=== PATIENT | male | born 1965 | race African-American/Black ===

== ENCOUNTER 2017-04-14 12:40 | Inpatient (IN) | payer OTHER ==
[2017-04-14 17:17] VITALS: BMI 24.4
--- NOTE | 2017-04-14 19:42 | HP ---
CIWA Score - CIWA Score Nausea/Vomitin-No Nausea/No Vomiting Muscle Tremors: 4-Moderate,w/Arms Extend Anxiety: 2 Agitation: 1-Slight > Activity Paroxysmal Sweats: 3 Orientation: 0-Oriented Tacttile Disturbances: 0-None Auditory Disturbances: 0-None Visual Disturbances: 3-Moderate Sensitivity Headache: 0-None Present CIWA-Ar Total Score: 13 Admission ROS BHS - HPI Chief Complaint: I need help, I missed my methadone program yesterday and started using heroin yesterday, I need to drink every day and I don't feel well. Allergies/Adverse Reactions: Allergies Allergy/AdvReac Type Severity Reaction Status Date / Time No Known Allergies Allergy Verified 04/14/17 18:00 History of Present Illness: 51 yo male with heroin and alcohol dependence is here seeking detox. Patient attends Methadone program [facility] , currently receives methadone 50mg, last medicated 04/14/17, reports he missed attendance at his program yesterday which he attributes to him starting to use heroin once again. PHMX: DM II, non -insulin dependent, hyperlipidemia, HTN, depression and anxiety. Denies hx of seizure, OD, or psychiatric admissions. Reports no significant period of sobriety. Denies suicidal / homicidal ideation or suicide attempts. Last detox at [facility] 2000. Exam Limitations: No Limitations - Ebola screening Have you traveled outside of the country in the last 21 days: No Have you had contact with anyone from an Ebola affected area: No Have you been sick,other than usual withdrawal symptoms: No Do you have a fever: No - Review of Systems Constitutional: Chills, Loss of Appetite, Changes in sleep EENT: reports: Blurred Vision, Other (missing teeth) Respiratory: reports: No Symptoms reported Cardiac: reports: No Symptoms Reported GI: reports: Poor Appetite, Poor Fluid Intake, Abdominal cramping : reports: No Symptoms Reported Musculoskeletal: reports: Back Pain Integumentary: reports: No Symptoms Reported Neuro: reports: Weakness Endocrine: reports: No Symptoms Reported Hematology: reports: No Symptoms Reported Psychiatric: reports: Orientated x3, Anxious Other Systems: Reviewed and Negative Patient History - Patient Medical History Hx Anemia: No Hx Asthma: Yes Hx Chronic Obstructive Pulmonary Disease (COPD): No Hx Cancer: No Hx Cardiac Disorders: No Hx Congestive Heart Failure: No Hx Hypertension: Yes Hx Hypercholesterolemia: No Hx Pacemaker: No HX Cerebrovascular Accident: No Hx Seizures: No Hx Dementia: No Hx Diabetes: Yes (NIDDM) Hx Gastrointestinal Disorders: Yes (acid reflux) Hx Liver Disease: No Hx Genitourinary Disorders: No Hx Sexually Transmitted Disorders: No Hx Renal Disease (ESRD): No Hx Thyroid Disease: No Hx Human Immunodeficiency Virus (HIV): No Hx Hepatitis C: No Hx Depression: Yes Hx Suicide Attempt: No Hx Bipolar Disorder: No Hx Schizophrenia: No - Patient Surgical History Past Surgical History: Yes Hx Neurologic Surgery: No Hx Cataract Extraction: No Hx Cardiac Surgery: No Hx Lung Surgery: No Hx Breast Surgery: No Hx Breast Biopsy: No Hx Abdominal Surgery: No Hx Appendectomy: No Hx Cholecystectomy: No Hx Genitourinary Surgery: No Hx Section: No Hx Orthopedic Surgery: No Other Surgical History: removal of cyst, right ankle Anesthesia Reaction: No - PPD History Previous Implant?: Yes Documented Results: Negative w/o proof PPD to be Administered?: Yes - Reproductive History Patient is a Female of Child Bearing Age (11 -55 yrs old): No - Smoking Cessation Smoking history: Never smoked Have you smoked in the past 12 months: No Hx Chewing Tobacco Use: No Initiated information on smoking cessation: No - Substance & Tx. History Hx Alcohol Use: Yes Hx Substance Use: Yes Substance Use Type: Alcohol, Heroin Hx Substance Use Treatment: Yes ([facility] 2000) - Substances Abused Heroin Route: Inhalation Frequency: 1-2 times per week Amount used: 2 bags Age of first use: 38 Date of Last Use: 04/13/17 Alcohol-beer Route: Oral Frequency: Daily Amount used: 4-6 pks. Age of first use: 28 Date of Last Use: 04/14/17 Family Disease History - Family Disease History Family Disease History: Diabetes: Mother (dec, DM and Kidney failure ), Other: Father (dec, alcoholism ), Mother Admission Physical Exam S - Vital Signs Vital Signs: Vital Signs - 24 hr 04/14/17 17:15 Temperature 98.8 F Pulse Rate 95 H Respiratory 18 Rate Blood Pressure 170/100 - Physical General Appearance: Yes: Sweating, Anxious HEENTM: Yes: EOMI, Hearing grossly Normal, Normal ENT Inspection, Normocephalic , Normal Voice, ROWENA, Pharynx Normal, Tm's normal, Other (poor denattion) Respiratory: Yes: Chest Non-Tender, Lungs Clear, Normal Breath Sounds, No Respiratory Distress, No Accessory Muscle Use Neck: Yes: No masses,lesions,Nodules, Trachea in good position Breast: Yes: Breast Exam Deferred Cardiology: Yes: Within Normal Limits, Regular Rhythm, Regular Rate Abdominal: Yes: Normal Bowel Sounds, Non Tender, Flat, Soft Genitourinary: Yes: Within Normal Limits Back: Yes: Normal Inspection Musculoskeletal: Yes: full range of Motion, Gait Steady, Pelvis Stable Extremities: Yes: Normal Capillary Refill, Normal Inspection, Normal Range of Motion, Non-Tender, Other (bilateral nail dystrophy and discoloration on dumbs) Neurological: Yes: wildlife photographer II-XII NML intact, Fully Oriented, Alert, Motor Strength 5/5, Depressed Affect Integumentary: Yes: Normal Color, Dry, Warm Lymphatic: Yes: Within Normal Limits - Diagnostic (1) Methadone maintenance therapy patient Current Visit: Yes Status: Chronic (2) Heroin dependence Current Visit: Yes Status: Chronic (3) Alcohol dependence with withdrawal, uncomplicated Current Visit: Yes Status: Acute (4) Asthma Current Visit: Yes Status: Chronic Qualifiers: Asthma severity: mild Asthma persistence: intermittent Asthma complication type: uncomplicated Qualified Code(s): J45.20 - Mild intermittent asthma, uncomplicated (5) Hypertension Current Visit: Yes Status: Chronic Qualifiers: Hypertension type: essential hypertension Qualified Code(s): I10 - Essential (primary) hypertension (6) GERD (gastroesophageal reflux disease) Current Visit: Yes Status: Chronic Qualifiers: Esophagitis presence: without esophagitis Qualified Code(s): K21.9 - Gastro -esophageal reflux disease without esophagitis (7) Onychomycosis Current Visit: Yes Status: Chronic (8) Diabetes mellitus type 2, noninsulin dependent Current Visit: Yes Status: Chronic (9) Murmur, cardiac Current Visit: Yes Status: Chronic (10) Dehydration Current Visit: Yes Status: Acute Cleared for Admission S - Detox or Rehab [facility] Level of Care: Medically Managed Detox Regimen/Protocol: Librium [facility] Breath Alcohol Content Breath Alcohol Content: 0 Urine Drug Screen - Results Drug Screen Negative: No Urine Drug Screen Results: OPI-Opiates, MTD-Methadone
[2017-04-14] MEDS ORDERED: LOPERAMIDE HCL 2 MG CAPSULE PO PRN (19:47)
[2017-04-14] MEDS ORDERED: chlordiazePOXIDE HCL 25 MG CAPSULE PO ONE (19:47)
[2017-04-14] MEDS ORDERED: MENTHOL/PHENOL 1 EACH UD MM PRN (19:47)
[2017-04-14] MEDS ORDERED: ACETAMINOPHEN 325 MG TABLET (FP) PO PRN (19:47)
[2017-04-14] MEDS ORDERED: MAG HYDROX/AL HYDROX/SIMETH 30 ML UNIT-DOSE CUP PO PRN (19:47)
[2017-04-14] MEDS ORDERED: chlordiazePOXIDE HCL 25 MG CAPSULE PO PRN (19:47)
[2017-04-14] MEDS ORDERED: P-EPHED 60MG/TRIPROLIDI 2.5MG TABLET PO PRN (19:47)
[2017-04-14] MEDS ORDERED: hydrOXYzine PAMOATE 50 MG CAPSULE (FP) PO PRN (19:47)
[2017-04-14] MEDS ORDERED: MAGNESIUM HYDROX 2400MG/30ML ORAL SUSPENSION 30 ML CUP PO PRN (19:47)
[2017-04-14] MEDS ORDERED: MAGNESIUM CITRATE 300 ML BOTTLE PO PRN (19:47)
[2017-04-14] MEDS ORDERED: guaiFENesin/D-METHORPHAN HB 10 ML UNIT-DOSE CUPS PO PRN (19:47)
[2017-04-14] MEDS ORDERED: IBUPROFEN 400 MG TABLET (FP) PO PRN (19:47)
[2017-04-14] MEDS ORDERED: ALBUTEROL SO4 18 GM HFA INHALER IH PRN (19:49)
[2017-04-14] MEDS ORDERED: cloNIDine HCL 0.1 MG TABLET PO PRN (19:54)
[2017-04-14] MEDS: amLODIPine BESYLATE 10 MG TABLET (FP) PO SCH (20:46)
[2017-04-14] MEDS: THIAMINE HCL 100 MG TABLET (FP) PO SCH (22:33)
[2017-04-14] MEDS: chlordiazePOXIDE HCL 25 MG CAPSULE PO SCH (22:33)
[2017-04-14] MEDS: ATORVASTATIN CA 20 MG TABLET (FP) PO SCH (22:33)
[2017-04-14] MEDS: TIZANIDINE HCL 2 MG TABLET PO SCH (22:35)
[2017-04-14 22:50] LABS: URINE APPEARANCE CLEAR; URINE BILIRUBIN NEGATIVE (NEGATIVE); URINE BLOOD 1+ (NEGATIVE); URINE COLOR LTYELLOW; URINE GLUCOSE (UA) 2+ (NEGATIVE); URINE KETONE NEGATIVE (NEGATIVE); URINE LEUK ESTERASE NEGATIVE (NEGATIVE); URINE NITRITE NEGATIVE (NEGATIVE); URINE PROTEIN NEGATIVE (NEGATIVE); URINE UROBILINOGEN NEGATIVE mg/dL (0.2-1.0)
[2017-04-14 23:00] LABS: EPI CELLS RARE /HPF (FEW); URINE MUCUS RARE
[2017-04-15] MEDS: chlordiazePOXIDE HCL 25 MG CAPSULE PO SCH ×4 (05:17→22:24)
[2017-04-15] MEDS ORDERED: METHADONE HCL 10 MG TABLET PO SCH (07:30)
[2017-04-15] MEDS: sitaGLIPtin PHOSPHATE 50 MG TABLET PO SCH ×2 (07:48→17:35)
[2017-04-15] MEDS ORDERED: METHADONE HCL 10 MG TABLET ONE (09:50)
[2017-04-15] MEDS ORDERED: METHADONE HCL 40 MG DISPERSABLE TABLET ONE (09:50)
[2017-04-15] MEDS: METHADONE 40 MG, METHADONE 10 MG PO SCH (09:53)
[2017-04-15] MEDS: PRENATAL VITAMINS W/ FOLIC ACID TABLET (FP) PO SCH (09:54)
[2017-04-15] MEDS: TIZANIDINE HCL 2 MG TABLET PO SCH (09:54)
[2017-04-15] MEDS: amLODIPine BESYLATE 10 MG TABLET (FP) PO SCH (09:54)
[2017-04-15 10:18] LABS: HEMATOCRIT 40.4 % (35.4-49); HEMOGLOBIN 13.1 GM/dL (11.7-16.9); MCH 32.1 pg (25.7-33.7); MCHC 32.5 g/dl (32.0-35.9); MEAN CELL VOLUME 98.7 fl (80-96); MEAN PLT VOLUME 8.6 fl (7.5-11.1); PLATELET COUNT 189 K/MM3 (134-434); RDW 12.5 % (11.9-15.9)
[2017-04-15 10:29] LABS: CHLORIDE 97 mmol/L (98-107); POTASSIUM 3.4 mmol/L (3.5-5.1); SODIUM 137 mmol/L (136-145)
[2017-04-15 10:51] LABS: ALBUMIN 3.8 g/dl (3.4-5.0); ALK PHOS 57 U/L (45-117); ANION GAP 13 (8-16); BLOOD UREA NITROGEN 8 mg/dL (7-18); CALCIUM 9.1 mg/dL (8.5-10.1); CO2 27 mmol/L (21-32); CREATININE 0.9 mg/dL (0.7-1.3); GLUCOSE,RANDOM 149 mg/dL (74-106); SGOT/AST 80 U/L (15-37); SGPT/ALT 78 U/L (12-78); TOT PROT 7.4 g/dl (6.4-8.2)
[2017-04-15] MEDS: RANITIDINE HCL 150 MG TABLET (FP) PO SCH ×2 (10:57→22:24)
--- NOTE | 2017-04-15 13:01 | CONSULT ---
[facility] Psychiatric Consult - Data Date of interview: 04/15/17 Admission source: [facility] Identifying data: Readmission to [facility] for this 51 y/o AA male seeking detox treatment on for alcohol and opioid dependence.Patient is , a father of three,domiciled,unemployed and supported on Public Assistance. Substance Abuse History: Confirmed by patient in this session.See current [facility] report for details.Smoking history: Never smoked. Have you smoked in the past 12 months: No. Hx Chewing Tobacco Use: No. Initiated information on smoking cessation: No. - Substance & Tx. History. Hx Alcohol Use: Yes. Hx Substance Use: Yes. Substance Use Type: Alcohol, Heroin. Hx Substance Use Treatment: Yes ([facility] 2000). - Substances Abused. Heroin. Route: Inhalation. Frequency : 1-2 times per week. Amount used: 2 bags. Age of first use: 38. Date of Last Use: 04/13/17. Alcohol-beer. Route: Oral. Frequency: Daily. Amount used: 4-6 pks. Age of first use: 28. Date of Last Use: 04/14/17 Medical History: Bronchial asthma,hypertension,diabetes mellitus,GERD and dyslipidemia. Psychiatric History: Patient denies history of psychiatric hospitalizations.He is currently prescribed bupropion XL 150 mg/day + trazodone 100 mg/hs + seroquel 50 mg/hs.Mr Coppola is on methadone maintenance (50 mg/day) at the [facility] program in the [place].Diagnosed with MDD and Anxiety Disorder.Patient denies history of suicide attempts. Physical/Sexual Abuse/Trauma History: Patient denies. Additional Comment: Urine Drug Screen Results: OPI-Opiates, MTD-Methadone.Noted. Mental Status Exam - Mental Status Exam Alert and Oriented to: Time, Place, Person Cognitive Function: Good Patient Appearance: Well Groomed Mood: Withdrawn, Anxious, Hopeful Affect: Mood Congruent Patient Behavior: Fatigued, Appropriate, Cooperative Speech Pattern: Clear, Appropriate Voice Loudness: Normal Thought Process: Intact, Goal Oriented Thought Disorder: Not Present Hallucinations: Denies Suicidal Ideation: Denies Homicidal Ideation: Denies Insight/Judgement: Poor Sleep: Poorly, Difficulty falling asleep Appetite: Good Muscle strength/Tone: Normal Gait/Station: Normal Psychiatric Findings - Problem List ([place] 1, 2,3) (1) Alcohol dependence with withdrawal, uncomplicated Current Visit: Yes Status: Acute (2) Opioid dependence on agonist therapy Current Visit: Yes Status: Acute (3) Substance induced mood disorder Current Visit: Yes Status: Acute (4) MDD (major depressive disorder) Current Visit: Yes Status: Acute Comment: As per self-report.Currently in OPD treatment.On wellbutrin. (5) Insomnia Current Visit: Yes Status: Acute - Initial Treatment Plan Initial Treatment Plan: Psychoeducation.Detoxification in progress.Sleep hygiene.Medications : wellbutrin XL 150 mg po daily + trazodone 50 mg po hs + seroquel 50 mg po hs.Side-effects/benefits discussed with the patient.He is made aware of risk of seizures,metabolic syndrome,abnormal involuntary movements and priapism.Mr Coppola states that his medications are well tolerated and effective.Agrees to this careplan.Observation.
--- NOTE | 2017-04-15 15:20 | PN ---
[facility] CIWA - CIWA Score Nausea/Vomitin-No Nausea/No Vomiting Muscle Tremors: 3 Anxiety: 4-Mod. Anxious/Guarded Agitation: 3 Paroxysmal Sweats: 3 Orientation: 0-Oriented Tacttile Disturbances: 2-Mild Itch/Numbness/Burn Auditory Disturbances: 0-None Visual Disturbances: 2-Mild Sensitivity Headache: 0-None Present CIWA-Ar Total Score: 17 S Progress Note (SOAP) Subjective: Sweating, Stomach Cramping, Constipation, Tremors. Objective: PT. A & O X 3, OBSERVED AMBULATING ON UNIT. NO ACUTE DISTRESS. 04/15/17 15:18 Vital Signs Temperature 97.4 F L 04/15/17 13:51 Pulse Rate 85 04/15/17 13:51 Respiratory Rate 18 04/15/17 13:51 Blood Pressure 104/71 04/15/17 13:51 O2 Sat by Pulse Oximetry (%) Laboratory Tests 04/14/17 04/14/17 04/14/17 18:26 20:46 Unknown WBC RBC Hgb Hct MCV MCH MCHC RDW Plt Count MPV Sodium Potassium Chloride Carbon Dioxide Anion Gap BUN Creatinine Creat Clearance w eGFR POC Glucometer 88 128 Random Glucose Calcium Total Bilirubin AST ALT Alkaline Phosphatase Total Protein Albumin Urine Color Ltyellow Urine Appearance Clear Urine pH 5.0 Ur Specific [place] 1.010 Urine Protein Negative Urine Glucose (UA) 2+ H Urine Ketones Negative Urine Blood 1+ H Urine Nitrite Negative Urine Bilirubin Negative Urine Urobilinogen Negative Ur Leukocyte Esterase Negative Urine WBC (Auto) <1 Urine RBC (Auto) None Ur Epithelial Cells Rare Urine Mucus Rare RPR Titer HIV 1&2 Antibody Screen HIV P24 Antigen 04/15/17 04/15/17 04/15/17 05:16 07:40 07:40 WBC 4.0 RBC 4.10 Hgb 13.1 Hct 40.4 MCV 98.7 H MCH 32.1 MCHC 32.5 RDW 12.5 Plt Count 189 MPV 8.6 Sodium Potassium Chloride Carbon Dioxide Anion Gap BUN Creatinine Creat Clearance w eGFR POC Glucometer 101 Random Glucose Calcium Total Bilirubin AST ALT Alkaline Phosphatase Total Protein Albumin Urine Color Urine Appearance Urine pH Ur Specific Bryant Urine Protein Urine Glucose (UA) Urine Ketones Urine Blood Urine Nitrite Urine Bilirubin Urine Urobilinogen Ur Leukocyte Esterase Urine WBC (Auto) Urine RBC (Auto) Ur Epithelial Cells Urine Mucus RPR Titer HIV 1&2 Antibody Screen Negative HIV P24 Antigen Negative 04/15/17 04/15/17 07:40 07:40 WBC RBC Hgb Hct MCV MCH MCHC RDW Plt Count MPV Sodium 137 Potassium 3.4 L Chloride 97 L Carbon Dioxide 27 Anion Gap 13 BUN 8 Creatinine 0.9 Creat Clearance w eGFR > 60 POC Glucometer Random Glucose 149 H Calcium 9.1 Total Bilirubin 1.0 AST 80 H ALT 78 Alkaline Phosphatase 57 Total Protein 7.4 Albumin 3.8 Urine Color Urine Appearance Urine pH Ur Specific Bryant Urine Protein Urine Glucose (UA) Urine Ketones Urine Blood Urine Nitrite Urine Bilirubin Urine Urobilinogen Ur Leukocyte Esterase Urine WBC (Auto) Urine RBC (Auto) Ur Epithelial Cells Urine Mucus RPR Titer Nonreactive HIV 1&2 Antibody Screen HIV P24 Antigen LABS NOTED. Assessment: 04/15/17 15:18 WITHDRAWAL SYMPTOMS. HYPOKALEMIA. 04/15/17 15:22 Plan: CONTINUE DETOX. INCREASE DAILY PO FLUID INTAKE. K-DUR, 40 MEQ PO X 1 NOW, 20 MEQ PO BID STARTING TOMORROW AM. INCREASE DAILY PO FLUID INTAKE.
[2017-04-15] MEDS ORDERED: POTASSIUM CHLORIDE TABS 20 MEQ TABLET.ER (FP) PO ONE (15:37)
[2017-04-15] MEDS: THIAMINE HCL 100 MG TABLET (FP) PO SCH (22:24)
[2017-04-15] MEDS: ATORVASTATIN CA 20 MG TABLET (FP) PO SCH (22:24)
[2017-04-15] MEDS: QUEtiapine FUMARATE 50 MG TABLET PO SCH (22:24)
[2017-04-15] MEDS: traZODone HCL 50 MG TABLET (FP) PO SCH (22:25)
[2017-04-16] MEDS ORDERED: METHADONE HCL 40 MG DISPERSABLE TABLET ONE (04:12)
[2017-04-16] MEDS ORDERED: METHADONE HCL 10 MG TABLET ONE (04:12)
[2017-04-16] MEDS: METHADONE 40 MG, METHADONE 10 MG PO SCH (05:53)
[2017-04-16] MEDS: chlordiazePOXIDE HCL 25 MG CAPSULE PO SCH ×3 (05:53→18:03)
[2017-04-16] MEDS: sitaGLIPtin PHOSPHATE 50 MG TABLET PO SCH ×2 (07:20→18:06)
[2017-04-16] MEDS: PRENATAL VITAMINS W/ FOLIC ACID TABLET (FP) PO SCH (10:47)
[2017-04-16] MEDS: RANITIDINE HCL 150 MG TABLET (FP) PO SCH ×2 (10:47→22:39)
[2017-04-16] MEDS: TIZANIDINE HCL 2 MG TABLET PO SCH (10:48)
[2017-04-16] MEDS: amLODIPine BESYLATE 10 MG TABLET (FP) PO SCH (10:48)
[2017-04-16] MEDS: POTASSIUM CHLORIDE TABS 20 MEQ TABLET.ER (FP) PO SCH ×2 (10:48→18:03)
[2017-04-16] MEDS ORDERED: SENNOSIDES 8.6MG TABLET (FP) PO SCH ×2 (11:45→22:00)
[2017-04-16] MEDS ORDERED: DOCUSATE SODIUM 100 MG CAPSULE (FP) PO SCH ×2 (12:15→22:00)
--- NOTE | 2017-04-16 16:01 | PN ---
[facility] CIWA - CIWA Score Nausea/Vomitin-No Nausea/No Vomiting Muscle Tremors: 3 Anxiety: 4-Mod. Anxious/Guarded Agitation: 2 Paroxysmal Sweats: 2 Orientation: 0-Oriented Tacttile Disturbances: 2-Mild Itch/Numbness/Burn Auditory Disturbances: 0-None Visual Disturbances: 2-Mild Sensitivity Headache: 0-None Present CIWA-Ar Total Score: 15 [facility] Progress Note (SOAP) Subjective: Stomach Cramping, Constipation, Anxious, Sweating. Objective: PT. A & O X 3, OBSERVED AMBULATING ON UNIT. NO ACUTE DISTRESS. 04/16/17 15:58 Vital Signs Temperature 98.5 F 04/16/17 14:05 Pulse Rate 89 04/16/17 14:05 Respiratory Rate 18 04/16/17 14:05 Blood Pressure 107/70 04/16/17 14:05 O2 Sat by Pulse Oximetry (%) Laboratory Tests 04/14/17 04/14/17 04/14/17 18:26 20:46 Unknown WBC RBC Hgb Hct MCV MCH MCHC RDW Plt Count MPV Sodium Potassium Chloride Carbon Dioxide Anion Gap BUN Creatinine Creat Clearance w eGFR POC Glucometer 88 128 Random Glucose Calcium Total Bilirubin AST ALT Alkaline Phosphatase Total Protein Albumin Urine Color Ltyellow Urine Appearance Clear Urine pH 5.0 Ur Specific [place] 1.010 Urine Protein Negative Urine Glucose (UA) 2+ H Urine Ketones Negative Urine Blood 1+ H Urine Nitrite Negative Urine Bilirubin Negative Urine Urobilinogen Negative Ur Leukocyte Esterase Negative Urine WBC (Auto) <1 Urine RBC (Auto) None Ur Epithelial Cells Rare Urine Mucus Rare RPR Titer HIV 1&2 Antibody Screen HIV P24 Antigen 04/15/17 04/15/17 04/15/17 05:16 07:40 07:40 WBC 4.0 RBC 4.10 Hgb 13.1 Hct 40.4 MCV 98.7 H MCH 32.1 MCHC 32.5 RDW 12.5 Plt Count 189 MPV 8.6 Sodium Potassium Chloride Carbon Dioxide Anion Gap BUN Creatinine Creat Clearance w eGFR POC Glucometer 101 Random Glucose Calcium Total Bilirubin AST ALT Alkaline Phosphatase Total Protein Albumin Urine Color Urine Appearance Urine pH Ur Specific [place] Urine Protein Urine Glucose (UA) Urine Ketones Urine Blood Urine Nitrite Urine Bilirubin Urine Urobilinogen Ur Leukocyte Esterase Urine WBC (Auto) Urine RBC (Auto) Ur Epithelial Cells Urine Mucus RPR Titer HIV 1&2 Antibody Screen Negative HIV P24 Antigen Negative 04/15/17 04/15/17 04/15/17 07:40 07:40 16:15 WBC RBC Hgb Hct MCV MCH MCHC RDW Plt Count MPV Sodium 137 Potassium 3.4 L Chloride 97 L Carbon Dioxide 27 Anion Gap 13 BUN 8 Creatinine 0.9 Creat Clearance w eGFR > 60 POC Glucometer 113 Random Glucose 149 H Calcium 9.1 Total Bilirubin 1.0 AST 80 H ALT 78 Alkaline Phosphatase 57 Total Protein 7.4 Albumin 3.8 Urine Color Urine Appearance Urine pH Ur Specific [place] Urine Protein Urine Glucose (UA) Urine Ketones Urine Blood Urine Nitrite Urine Bilirubin Urine Urobilinogen Ur Leukocyte Esterase Urine WBC (Auto) Urine RBC (Auto) Ur Epithelial Cells Urine Mucus RPR Titer Nonreactive HIV 1&2 Antibody Screen HIV P24 Antigen 04/16/17 05:53 WBC RBC Hgb Hct MCV MCH MCHC RDW Plt Count MPV Sodium Potassium Chloride Carbon Dioxide Anion Gap BUN Creatinine Creat Clearance w eGFR POC Glucometer 150 Random Glucose Calcium Total Bilirubin AST ALT Alkaline Phosphatase Total Protein Albumin Urine Color Urine Appearance Urine pH Ur Specific [place] Urine Protein Urine Glucose (UA) Urine Ketones Urine Blood Urine Nitrite Urine Bilirubin Urine Urobilinogen Ur Leukocyte Esterase Urine WBC (Auto) Urine RBC (Auto) Ur Epithelial Cells Urine Mucus RPR Titer HIV 1&2 Antibody Screen HIV P24 Antigen LABS NOTED. Assessment: 04/16/17 15:59 WITHDRAWAL SYMPTOMS. HYPOKALEMIA. 04/16/17 16:00 Plan: CONTINUE DETOX.
[2017-04-16] MEDS: ATORVASTATIN CA 20 MG TABLET (FP) PO SCH (22:39)
[2017-04-16] MEDS: THIAMINE HCL 100 MG TABLET (FP) PO SCH (22:39)
[2017-04-16] MEDS: chlordiazePOXIDE 5 MG CAPSULE PO SCH (22:39)
[2017-04-16] MEDS: QUEtiapine FUMARATE 50 MG TABLET PO SCH (22:40)
[2017-04-16] MEDS: traZODone HCL 50 MG TABLET (FP) PO SCH (22:40)
[2017-04-17] MEDS ORDERED: METHADONE HCL 10 MG TABLET ONE (03:38)
[2017-04-17] MEDS ORDERED: METHADONE HCL 40 MG DISPERSABLE TABLET ONE (03:39)
[2017-04-17] MEDS: chlordiazePOXIDE 5 MG CAPSULE PO SCH (05:56)
[2017-04-17] MEDS: METHADONE 40 MG, METHADONE 10 MG PO SCH (05:57)
[2017-04-17] MEDS: sitaGLIPtin PHOSPHATE 50 MG TABLET PO SCH (07:41)
[2017-04-17 09:22] VITALS: BP 111/69; PULSE 86; TEMP 96.4
--- NOTE | 2017-04-17 15:07 | DS ---
[facility] Detox Discharge Summary Admission Date: 04/14/17 Discharge Date: 04/17/17 - History Additional Comments: pt insists on leaving despite explanation/education to complete detox. Stated "I will be good, I will use the medicine my doctor gave me that will help me to stop drinking and I will go to meetings". States he does not know the name of the med. He will f/u with his PMD Dr Summers @[address]. States he has an appointment with him next month but unsure of actual date. Pt was A & O x 3, had steady gait and not in acute distress - Physical Exam Results Vital Signs: Vital Signs Temperature 96.4 F L 04/17/17 09:22 Pulse Rate 86 04/17/17 09:22 Respiratory Rate 18 04/17/17 09:22 Blood Pressure 111/69 04/17/17 09:22 O2 Sat by Pulse Oximetry (%) Pertinent Admission Physical Exam Findings: withdrawal sx - Medication Discharge Medications: Ambulatory Orders Albuterol Sulfate Inhaler - [Ventolin HFA Inhaler -] 2 inh PO Q4H PRN 04/14/17 Amlodipine Besylate [Norvasc -] 10 mg PO DAILY 04/14/17 Atorvastatin Ca [Lipitor] 20 mg PO HS 04/14/17 Bupropion HCl [Bupropion Xl] 150 mg PO DAILY 04/14/17 Disulfiram [Antabuse -] 250 mg PO DAILY 04/14/17 Naproxen [Naprosyn -] 500 mg PO DAILY PRN 04/14/17 Quetiapine Fumarate [Seroquel -] 50 mg PO HS 04/14/17 Sitagliptin Phos/Metformin HCl [Janumet Xr 50-500 mg Tablet] 1 each PO BID 04/14 Tizanidine HCl 2 mg PO DAILY 04/14/17 Trazodone HCl 50 mg PO HS 04/14/17 metFORMIN XR [Glucophage Xr -] 500 mg PO BIDAC tab.sr.24h 04/17/17 - Diagnosis (1) Alcohol dependence with withdrawal, uncomplicated Status: Acute (2) Opioid dependence on agonist therapy Status: Acute (3) Asthma Status: Chronic Qualifiers: Asthma severity: mild Asthma persistence: intermittent Asthma complication type: uncomplicated Qualified Code(s): J45.20 - Mild intermittent asthma, uncomplicated (4) Diabetes mellitus type 2, noninsulin dependent Status: Chronic (5) GERD (gastroesophageal reflux disease) Status: Chronic Qualifiers: Esophagitis presence: without esophagitis Qualified Code(s): K21.9 - Gastro -esophageal reflux disease without esophagitis (6) Hypertension Status: Chronic Qualifiers: Hypertension type: essential hypertension Qualified Code(s): I10 - Essential (primary) hypertension - AMA Did Patient Leave Against Medical Advice: Yes
[2017-04-17] MEDS ORDERED: chlordiazePOXIDE HCL 10 MG CAPSULE PO SCH (23:00)
--- NOTE | 2017-04-19 13:38 | EKG ---
Test Reason : Blood Pressure : / mmHG Vent. Rate : 077 BPM Atrial Rate : 077 BPM P-R Int : 144 ms QRS Dur : 084 ms QT Int : 360 ms P-R-T Axes : 074 062 049 degrees QTc Int : 407 ms NORMAL SINUS RHYTHM POSSIBLE LEFT ATRIAL ENLARGEMENT LEFT VENTRICULAR HYPERTROPHY ABNORMAL ECG NO PREVIOUS ECGS AVAILABLE Confirmed by MD Donny, Ted ([id number]) on 04/19/2017 1:38:12 PM Referred By: Confirmed By:Ted Hines MD
== END 2017-04-17 09:17 | disposition left against medical advice (07) | DRG 770 ==
LOC: YASAS 12:40 → Y3N 19:20
PROVIDERS: ADMIT Internal Medicine; ATTEND Internal Medicine
PROC: HZ2ZZZZ Detoxification Services for Substance Abuse Treatment (ICD-10-PCS; principal; 2017-04-14)
DX: F10.230 Alcohol dependence with withdrawal, uncomplicated (principal); F11.20 Opioid dependence, uncomplicated; F33.9 Major depressive disorder, recurrent, unspecified; F19.24 Other psychoactive substance dependence with psychoactive substance-induced mood disorder; G47.00 Insomnia, unspecified; I10 Essential (primary) hypertension; K21.9 Gastro-esophageal reflux disease without esophagitis; J45.20 Mild intermittent asthma, uncomplicated; E11.9 Type 2 diabetes mellitus without complications; Z79.84 Long term (current) use of oral hypoglycemic drugs
CPT/HCPCS: 36415; 80053; 81003; 81015; 82962; 85027; 86593; 87389; 93005; 93010; J0735

== ENCOUNTER 2019-01-30 10:47 | Inpatient (IN) | payer OTHER ==
[2019-01-30 11:36] VITALS: BMI 24.7
--- NOTE | 2019-01-30 13:28 | HP ---
CIWA Score Nausea/Vomitin-No Nausea/No Vomiting Muscle Tremors: 1-None Visible, but [place] Anxiety: 3 Agitation: 3 Paroxysmal Sweats: 3 Orientation: 0-Oriented Tacttile Disturbances: 0-None Auditory Disturbances: 0-None Visual Disturbances: 0-None Headache: 1-Very Mild CIWA-Ar Total Score: 11 - Admission Criteria [facility]ASAS Guidelines: Admission for Medically Managed Detox: Requires at least one of the followin. CIWA greater than 12 2. Seizures within the past 24 hours 3. Delirium tremens within the past 24 hours 4. Hallucinations within the past 24 hours 5. Acute intervention needed for co occurring medical disorder 6. Acute intervention needed for co occurring psychiatric disorder 7. Severe withdrawal that cannot be handled at a lower level of care (continued vomiting, continued diarrhea, abnormal vital signs) requiring intravenous medication and/or fluids 8. Admitting History and Physical - Smoking History Smoking history: Never smoked Have you smoked in the past 12 months: No - Alcohol/Substance Use Hx Alcohol Use: Yes Admission [facility] Allergies/Adverse Reactions: Allergies Allergy/AdvReac Type Severity Reaction Status Date / Time No Known Allergies Allergy Verified 01/30/19 11:16 History of Present Illness: 53 y/o M with history of heroin use ( currently on 60mg of methadone) and alcohol use presenting to [facility] for detox from alcohol. Pt has been drinking for about 20 years. He admits to drinking 10 beers daily. NO history of blackouts or seizures. Last drink was last night. Pt on disulfiram but doesnt take.Pt also admit to continuing using heroin once in a [place] despite being in a program. He occasionally snorts about 2 bags when he does use with the last being yesterday. He denies history of overdose.Has gone to through detox twice in the past no rehab as he is busy with work. No cig smoking. 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 PE VS: 97.9F, 147/99 mmHg, 96 bpm, 20 DYAN 0 Utox: mop, mtd CIWA : 11 General: anxious HEENT: PERRLA, moist membrane LUNG: VBS b/l HEART: RRR no MRG Abdomen: +BS, NTND extremities: 2+ pulses, numbness in b/l hallux neuro: decreased sensation in hallux Plan: AUD- valium detox protocol Pt was transported with a pt infected with scabies- will start permethrin - Ebola screening Have you traveled outside of the country in the last 21 days: No Have you had contact with anyone from an Ebola affected area: No Do you have a fever: No Patient History - Patient Medical History Hx Anemia: No Hx Asthma: Yes Hx Chronic Obstructive Pulmonary Disease (COPD): No Hx Cancer: No Hx Cardiac Disorders: No Hx Congestive Heart Failure: No Hx Hypertension: Yes Hx Hypercholesterolemia: No Hx Pacemaker: No HX Cerebrovascular Accident: No Hx Seizures: No Hx Dementia: No Hx Diabetes: Yes (NIDDM) Hx Gastrointestinal Disorders: Yes (acid reflux) Hx Liver Disease: No Hx Genitourinary Disorders: No Hx Sexually Transmitted Disorders: No Hx Renal Disease (ESRD): No Hx Thyroid Disease: No Hx Human Immunodeficiency Virus (HIV): No Hx Hepatitis C: No Hx Depression: Yes Hx Suicide Attempt: No Hx Bipolar Disorder: No Hx Schizophrenia: No - Patient Surgical History Past Surgical History: Yes Hx Neurologic Surgery: No Hx Cataract Extraction: No Hx Cardiac Surgery: No Hx Lung Surgery: No Hx Breast Surgery: No Hx Breast Biopsy: No Hx Abdominal Surgery: No Hx Appendectomy: No Hx Cholecystectomy: No Hx Genitourinary Surgery: No Hx Section: No Hx Orthopedic Surgery: No Other Surgical History: removal of cyst, right ankle Anesthesia Reaction: No - PPD History Date: 04/16/17 - Smoking Cessation Smoking history: Never smoked Have you smoked in the past 12 months: No Hx Chewing Tobacco Use: No - Substances abused Alcohol Substance route: Oral Frequency: Daily Amount used: 9 bottles of 22oz Age of first use: 28 Date of last use: 01/29/19 Admission Physical Exam S - Vital Signs Vital Signs: Vital Signs - 24 hr 01/30/19 11:28 Temperature 97.9 F Pulse Rate 96 H Respiratory 20 Rate Blood Pressure 147/99 Cleared for Admission S - Detox or Rehab [facility] Level of Care: Medically Supervised Breathalyzer - Breathalyzer Breathalyzer: 0 Urine Drug Screen - Test Device Lot number: [id number] Expiration date: 09/20/20 - Control Is test valid?: Yes - Results Drug screen NEGATIVE: No Urine drug screen results: MOP-Opiates, MTD-Methadone Inpatient Rehab Admission - Rehab Decision to Admit Inpatient rehab admission?: No
[2019-01-30] MEDS ORDERED: METHOCARBAMOL 500 MG TABLET PO PRN (13:45)
[2019-01-30] MEDS ORDERED: MAGNESIUM HYDROX 2400MG/30ML ORAL SUSPENSION 30 ML CUP PO PRN (13:45)
[2019-01-30] MEDS ORDERED: MAG HYDROX/AL HYDROX/SIMETH 30 ML UNIT-DOSE CUP PO PRN (13:45)
[2019-01-30] MEDS ORDERED: IBUPROFEN 400 MG TABLET (FP) PO PRN (13:45)
[2019-01-30] MEDS ORDERED: ACETAMINOPHEN 325 MG TABLET (FP) PO PRN ×2 (13:45)
[2019-01-30] MEDS ORDERED: BISMUTH SUBSALICYLATE 524 MG/30 ML UD PO PRN (13:45)
[2019-01-30] MEDS ORDERED: MAGNESIUM CITRATE 300 ML BOTTLE PO PRN (13:45)
[2019-01-30] MEDS ORDERED: MENTHOL/PHENOL 1 EACH UD MM PRN (13:45)
[2019-01-30] MEDS ORDERED: MELATONIN 5 MG TABLETS PO PRN (13:45)
[2019-01-30] MEDS ORDERED: hydrOXYzine PAMOATE 25 MG CAPSULE (FP) PO PRN (13:45)
[2019-01-30] MEDS ORDERED: diazePAM 5 MG TABLET PO PRN (13:45)
[2019-01-30] MEDS ORDERED: PERMETHRIN 5% TOPICAL CREAM 60 GM TUBE TP ONE (15:05)
--- NOTE | 2019-01-30 16:32 | PN ---
Teaching Attending Note Name of Resident: Fiordaliza Roche ATTENDING PHYSICIAN STATEMENT I saw and evaluated the patient. I reviewed the resident's note and discussed the case with the resident. I agree with the resident's findings and plan as documented. SUBJECTIVE: pt here for etoh use , reports 10 beers/day . On MMTP 60 mg / day . PMH: DM, back pain, HTN PSYCH HX: depression was on meds until insurance lapsed PSH: ankle surgery OBJECTIVE: wnwd Vital Signs - 24 hr 01/30/19 11:28 Temperature 97.9 F Pulse Rate 96 H Respiratory 20 Rate Blood Pressure 147/99 ASSESSMENT AND PLAN: AUD - Valium detox .
[2019-01-30] MEDS ORDERED: diazePAM 5 MG TABLET PO ONE (18:00)
[2019-01-30] MEDS: THIAMINE HCL 100 MG TABLET (FP) PO SCH (22:12)
[2019-01-30] MEDS: traZODone HCL 50 MG TABLET (FP) PO SCH (22:12)
[2019-01-30] MEDS: GABAPENTIN 300 MG CAPSULE (FP) PO SCH (22:13)
[2019-01-30] MEDS: diazePAM 5 MG TABLET PO SCH (22:13)
[2019-01-31] MEDS: diazePAM 5 MG TABLET PO SCH ×3 (06:11→22:08)
[2019-01-31] MEDS ORDERED: PATIENT'S OWN MEDICATION (NON-FORMULARY) (Dapagliflozin Propanediol [Farxiga] 10 MG) PO SCH (10:00)
[2019-01-31] MEDS: PRENATAL VITAMINS W/ FOLIC ACID TABLET (FP) PO SCH (10:14)
[2019-01-31] MEDS ORDERED: LIDOCAINE 5% TOPICAL PATCH TP ONE (10:25)
[2019-01-31] MEDS ORDERED: IBUPROFEN 400 MG TABLET (FP) PO PRN (10:33)
[2019-01-31] MEDS ORDERED: ALBUTEROL SO4 8 GM HFA INHALER IH PRN (10:34)
[2019-01-31] MEDS ORDERED: metFORMIN HCL 500 MG TABLET (FP) PO ONE (10:36)
[2019-01-31] MEDS ORDERED: METHADONE HCL 10 MG TABLET PO ONE (10:37)
[2019-01-31] MEDS ORDERED: sitaGLIPtin PHOSPHATE 50 MG TABLET PO ONE (10:37)
[2019-01-31] MEDS ORDERED: METHADONE 40 MG, METHADONE 20 MG PO ONE (10:45)
--- NOTE | 2019-01-31 10:48 | PN ---
[facility] CIWA - CIWA Score Nausea/Vomitin-No Nausea/No Vomiting Muscle Tremors: 2 Anxiety: 2 Agitation: 2 Paroxysmal Sweats: 2 Orientation: 0-Oriented Tacttile Disturbances: 0-None Auditory Disturbances: 0-None Visual Disturbances: 0-None Headache: 0-None Present CIWA-Ar Total Score: 8 [facility] Progress Note (SOAP) Subjective: sweats chronic back pain interrupted sleep agitation diarrhea Objective: 01/31/19 10:55 Vital Signs Temperature 98.0 F 01/31/19 09:34 Pulse Rate 88 01/31/19 09:34 Respiratory Rate 18 01/31/19 09:34 Blood Pressure 121/66 01/31/19 09:34 O2 Sat by Pulse Oximetry (%) Laboratory Tests 01/30/19 01/30/19 01/31/19 17:50 21:32 06:09 POC Glucometer 170 273 179 rest of labs pending [email or web address] ambulating no acute distress Assessment: 01/31/19 10:58 withdrawals Plan: continue detox increase fluids pepto prn lidocaine patch motrin 800mg prn
[2019-01-31] MEDS ORDERED: METHADONE HCL 10 MG TABLET ONE (10:54)
[2019-01-31] MEDS ORDERED: METHADONE HCL 40 MG DISPERSABLE TABLET ONE (10:55)
[2019-01-31] MEDS: amLODIPine BESYLATE 10 MG TABLET (FP) PO SCH (11:04)
[2019-01-31 11:50] LABS: MCH 33.3 pg (25.7-33.7); MCHC 33.4 g/dl (32.0-35.9); MEAN CELL VOLUME 99.9 fl (80-96); MEAN PLT VOLUME 9.1 fl (7.5-11.1); PLATELET COUNT 198 K/MM3 (134-434); RDW 12.3 % (11.9-15.9); WHITE BLOOD COUNT 3.9 K/mm3 (4.0-10.0)
[2019-01-31 11:57] LABS: ALBUMIN 3.6 g/dl (3.4-5.0); BLOOD UREA NITROGEN 11.9 mg/dL (7-18); CALCIUM 9.2 mg/dL (8.5-10.1); POTASSIUM 4.2 mmol/L (3.5-5.1); TOT PROT 6.8 g/dl (6.4-8.2)
[2019-01-31] MEDS: GABAPENTIN 300 MG CAPSULE (FP) PO SCH (22:08)
[2019-01-31] MEDS: traZODone HCL 50 MG TABLET (FP) PO SCH (22:09)
[2019-01-31] MEDS: THIAMINE HCL 100 MG TABLET (FP) PO SCH (22:09)
[2019-01-31] MEDS: ATORVASTATIN CA 20 MG TABLET (FP) PO SCH (22:09)
[2019-01-31] MEDS: LIDOCAINE PATCH REMOVAL MC SCH (22:10)
[2019-02-01] MEDS ORDERED: METHADONE HCL 40 MG DISPERSABLE TABLET ONE (05:03)
[2019-02-01] MEDS ORDERED: METHADONE HCL 10 MG TABLET ONE (05:03)
[2019-02-01] MEDS ORDERED: METHADONE HCL 40 MG DISPERSABLE TABLET PO SCH (06:00)
[2019-02-01] MEDS: metFORMIN HCL 500 MG TABLET (FP) PO SCH (06:12)
[2019-02-01] MEDS: diazePAM 5 MG TABLET PO SCH ×2 (06:12→17:50)
[2019-02-01] MEDS: METHADONE 40 MG, METHADONE 20 MG PO SCH (06:13)
[2019-02-01] MEDS ORDERED: sitaGLIPtin PHOSPHATE 50 MG TABLET PO SCH (07:00)
[2019-02-01] MEDS ORDERED: LIDOCAINE 5% TOPICAL PATCH TP SCH (10:00)
[2019-02-01 10:24] LABS: RPR REACTIVE 1:2 (NONREACTIVE)
[2019-02-01] MEDS: amLODIPine BESYLATE 10 MG TABLET (FP) PO SCH (10:28)
[2019-02-01] MEDS: PRENATAL VITAMINS W/ FOLIC ACID TABLET (FP) PO SCH (10:28)
--- NOTE | 2019-02-01 11:25 | PN ---
S CIWA - CIWA Score Nausea/Vomitin-No Nausea/No Vomiting Muscle Tremors: 2 Anxiety: 1-Mildly Anxious Agitation: 1-Slight > Activity Paroxysmal Sweats: No Perspiration Orientation: 0-Oriented Tacttile Disturbances: 0-None Auditory Disturbances: 0-None Visual Disturbances: 0-None Headache: 0-None Present CIWA-Ar Total Score: 4 [facility] Progress Note (SOAP) Subjective: sweats body aches interrupted sleep i have a scab on my back Objective: 02/01/19 11:23 Vital Signs Temperature 97.9 F 02/01/19 09:47 Pulse Rate 112 H 02/01/19 09:47 Respiratory Rate 20 02/01/19 09:47 Blood Pressure 144/76 02/01/19 09:47 O2 Sat by Pulse Oximetry (%) Laboratory Tests 01/30/19 01/30/19 01/31/19 17:50 21:32 06:09 WBC RBC Hgb Hct MCV MCH MCHC RDW Plt Count MPV Sodium Potassium Chloride Carbon Dioxide Anion Gap BUN Creatinine Est GFR (CKD-EPI)AfAm Est GFR (CKD-EPI)NonAf POC Glucometer 170 273 179 Random Glucose Calcium Total Bilirubin AST ALT Alkaline Phosphatase Total Protein Albumin RPR Titer 01/31/19 01/31/19 01/31/19 08:00 08:00 08:00 WBC 3.9 L RBC 3.90 L Hgb 13.0 Hct 39.0 MCV 99.9 H MCH 33.3 MCHC 33.4 RDW 12.3 Plt Count 198 MPV 9.1 Sodium 136 Potassium 4.2 Chloride 98 Carbon Dioxide 31 Anion Gap 6 L BUN 11.9 Creatinine 1.0 Est GFR (CKD-EPI)AfAm 97.77 Est GFR (CKD-EPI)NonAf 84.35 POC Glucometer Random Glucose 286 H Calcium 9.2 Total Bilirubin 1.0 AST 54 H ALT 84 H Alkaline Phosphatase 65 Total Protein 6.8 Albumin 3.6 RPR Titer Reactive 1:2 H D 01/31/19 02/01/19 16:19 06:10 WBC RBC Hgb Hct MCV MCH MCHC RDW Plt Count MPV Sodium Potassium Chloride Carbon Dioxide Anion Gap BUN Creatinine Est GFR (CKD-EPI)AfAm Est GFR (CKD-EPI)NonAf POC Glucometer 203 250 Random Glucose Calcium Total Bilirubin AST ALT Alkaline Phosphatase Total Protein Albumin RPR Titer labs noted aaox3 ambulating no acute distress rpr 1:2 noted pt states he was treated in the past and has known of his titer Assessment: 02/01/19 11:29 withdrawals scab noted, no s/s of redness/infection noted Plan: continue detox increase fluids bacitracin oint d/c in am
[2019-02-01] MEDS ORDERED: BACITRACIN 15 GM TUBE TOPICAL OINTMENT TP SCH (11:30)
[2019-02-01 13:45] LABS: TREPONEMA ANTIBODY REACTIVE (NONREACTIVE)
[2019-02-01] MEDS ORDERED: INSULIN SLIDING SCALE (NOVOLOG) 1 VIAL SQ SCH ×2 (17:45→22:58)
--- NOTE | 2019-02-01 17:48 | PN ---
[facility] Progress Note Note: Vital Signs Temperature 97.7 F 02/01/19 13:16 Pulse Rate 89 02/01/19 13:16 Respiratory Rate 18 02/01/19 13:16 Blood Pressure 119/82 02/01/19 13:16 O2 Sat by Pulse Oximetry (%) Laboratory Last Values WBC 3.9 K/mm3 (4.0-10.0) L 01/31/19 08:00 RBC 3.90 M/mm3 (4.00-5.60) L 01/31/19 08:00 Hgb 13.0 GM/dL (11.7-16.9) 01/31/19 08:00 Hct 39.0 % (35.4-49) 01/31/19 08:00 MCV 99.9 fl (80-96) H 01/31/19 08:00 MCH 33.3 pg (25.7-33.7) 01/31/19 08:00 MCHC 33.4 g/dl (32.0-35.9) 01/31/19 08:00 RDW 12.3 % (11.9-15.9) 01/31/19 08:00 Plt Count 198 K/MM3 (134-434) 01/31/19 08:00 MPV 9.1 fl (7.5-11.1) 01/31/19 08:00 Sodium 136 mmol/L (136-145) 01/31/19 08:00 Potassium 4.2 mmol/L (3.5-5.1) 01/31/19 08:00 Chloride 98 mmol/L (98-107) 01/31/19 08:00 Carbon Dioxide 31 mmol/L (21-32) 01/31/19 08:00 Anion Gap 6 MMOL/L (8-16) L 01/31/19 08:00 BUN 11.9 mg/dL (7-18) 01/31/19 08:00 Creatinine 1.0 mg/dL (0.55-1.3) 01/31/19 08:00 Est GFR (CKD-EPI)AfAm 97.77 01/31/19 08:00 Est GFR (CKD-EPI)NonAf 84.35 01/31/19 08:00 POC Glucometer 359 UNITS (80-120) 02/01/19 16:34 Random Glucose 286 mg/dL (74-106) H 01/31/19 08:00 Calcium 9.2 mg/dL (8.5-10.1) 01/31/19 08:00 Total Bilirubin 1.0 mg/dL (0.2-1) 01/31/19 08:00 AST 54 U/L (15-37) H 01/31/19 08:00 ALT 84 U/L (13-61) H 01/31/19 08:00 Alkaline Phosphatase 65 U/L (45-117) 01/31/19 08:00 Total Protein 6.8 g/dl (6.4-8.2) 01/31/19 08:00 Albumin 3.6 g/dl (3.4-5.0) 01/31/19 08:00 RPR Titer Reactive 1:2 (NONREACTIVE) H D 01/31/19 08:00 T.pallidum Ab (MHA) Reactive (NONREACTIVE) 01/31/19 08:00 Elevated BGM, patient reports no complaints at this time, reports non compliance with diabetic medications in the community. Patient ambulating in the unit, no distress elevated LFTs d/t acetaminophen sliding scale added TIDAC increase PO fluids continue BGM ACHS continue to monitor
[2019-02-01] MEDS: traZODone HCL 50 MG TABLET (FP) PO SCH (22:18)
[2019-02-01] MEDS: ATORVASTATIN CA 20 MG TABLET (FP) PO SCH (22:19)
[2019-02-01] MEDS: THIAMINE HCL 100 MG TABLET (FP) PO SCH (22:19)
[2019-02-01] MEDS: GABAPENTIN 300 MG CAPSULE (FP) PO SCH (22:19)
[2019-02-01] MEDS: LIDOCAINE PATCH REMOVAL MC SCH (22:21)
[2019-02-01] MEDS ORDERED: INSULIN (NOVOLOG) ASPART 100 UNITS/ML 10ML VIAL SQ ONE (23:26)
[2019-02-01] MEDS ORDERED: INSULIN SLIDING SCALE (NOVOLOG) 1 VIAL SQ ONE (23:33)
[2019-02-02] MEDS ORDERED: METHADONE HCL 40 MG DISPERSABLE TABLET ONE (04:57)
[2019-02-02] MEDS ORDERED: METHADONE HCL 10 MG TABLET ONE (04:57)
[2019-02-02] MEDS: METHADONE 40 MG, METHADONE 20 MG PO SCH (05:27)
[2019-02-02] MEDS ORDERED: diazePAM 5 MG TABLET PO ONE (06:00)
[2019-02-02 06:34] VITALS: BP 111/60; PULSE 74; TEMP 97.9
[2019-02-02] MEDS: metFORMIN HCL 500 MG TABLET (FP) PO SCH (06:44)
--- NOTE | 2019-02-02 08:32 | DS ---
[facility] Detox Discharge Summary Admission Date: 01/30/19 - History Present History: Alcohol Dependence, MMTP - Physical Exam Results Vital Signs: Vital Signs Temperature 97.9 F 02/02/19 06:33 Pulse Rate 74 02/02/19 06:33 Respiratory Rate 18 02/02/19 06:33 Blood Pressure 111/60 02/02/19 06:33 O2 Sat by Pulse Oximetry (%) - Treatment Hospital Course: Detox Protocol Followed, Detoxed Safely, Responded well, Discharged Condition Good - Medication Discharge Medications: Ambulatory Orders Albuterol Sulfate Inhaler - [Ventolin HFA Inhaler -] 2 inh PO Q4H PRN 04/14/17 Amlodipine Besylate [Norvasc -] 10 mg PO DAILY 04/14/17 Atorvastatin Ca [Lipitor] 20 mg PO HS 04/14/17 Sitagliptin Phos/Metformin HCl [Janumet Xr 50-500 mg Tablet] 1 each PO BID 04/14 traZODone HCL [Trazodone HCl] 150 mg PO HS 04/14/17 Ergocalciferol (Vitamin D2) [Vitamin D2] 50,000 unit PO WEEKLY 01/30/19 Gabapentin [Neurontin -] 300 mg PO HS 01/30/19 - Diagnosis (1) Alcohol dependence with withdrawal, uncomplicated Current Visit: No Status: Chronic (2) Opioid dependence on agonist therapy Current Visit: No Status: Chronic (3) Asthma Current Visit: No Status: Chronic Qualifiers: Asthma severity: mild Asthma persistence: intermittent Asthma complication type: uncomplicated Qualified Code(s): J45.20 - Mild intermittent asthma, uncomplicated (4) Diabetes mellitus type 2, noninsulin dependent Current Visit: Yes Status: Chronic (5) GERD (gastroesophageal reflux disease) Current Visit: No Status: Chronic Qualifiers: Esophagitis presence: without esophagitis Qualified Code(s): K21.9 - Gastro -esophageal reflux disease without esophagitis - AMA Did Patient Leave Against Medical Advice: No
[2019-02-02] MEDS ORDERED: INSULIN SLIDING SCALE (NOVOLOG) 1 VIAL SQ SCH (22:44)
== END 2019-02-02 08:59 | disposition home or self-care (01) | DRG 773 ==
LOC: YASAS 10:47 → Y6N 16:58
PROVIDERS: ADMIT Allergy & Immunology; ATTEND Allergy & Immunology
PROC: HZ2ZZZZ Detoxification Services for Substance Abuse Treatment (ICD-10-PCS; principal; 2019-01-30)
DX: F10.230 Alcohol dependence with withdrawal, uncomplicated (principal); F11.20 Opioid dependence, uncomplicated; I10 Essential (primary) hypertension; J45.20 Mild intermittent asthma, uncomplicated; E11.9 Type 2 diabetes mellitus without complications; K21.9 Gastro-esophageal reflux disease without esophagitis; R94.5 Abnormal results of liver function studies; Z79.84 Long term (current) use of oral hypoglycemic drugs
CPT/HCPCS: 36415; 80053; 82962; 85027; 86593; 86780